=== PATIENT | male | born 1935 | race African-American/Black ===

== ENCOUNTER 2024-06-24 20:53 | Emergency (ER) | payer OTHER, MEDICAID ==
[~2024-06-24] VITALS: Ht 167.6 cm; Wt 104.0 kg
[2024-06-24] MEDS: ASPIRIN 325MG EC TABLET PO NR (00:20)
[2024-06-24 20:56] VITALS: TEMP 97.9; O2SAT 99
[2024-06-24 21:36] LABS: BASOPHILS % 0.5 % (0.0-2.0); EOSINOPHILS % 1.1 % (0.0-5.0); HEMATOCRIT. 36.6 % (42.0-52.0); HEMOGLOBIN. 12.1 g/dL (14.0-18.0); LYMPHOCYTES % 12.5 % (20.0-50.0); MEAN CORPUSCULAR HEMOGLOBIN 29.3 pg (28.0-32.0); MEAN CORPUSCULAR HGB CONC 33.1 g/dL (31.0-37.0); MEAN CORPUSCULAR VOLUME 88.4 fL (80.0-94.0); MEAN PLATELET VOLUME 8.6 fl (7.4-10.4); MONOCYTES % 5.4 % (2.0-8.0); NEUTROPHILS % 80.5 % (40.0-76.0); PLATELET 200 x1000/uL (130-400); RED BLOOD CELL COUNT 4.14 mill/uL (4.7-6.1); RED CELL DISTRIBUTION WIDTH 15.2 % (11.6-14.6); WHITE BLOOD COUNT 8.3 x1000/uL (4.5-11.0)
[2024-06-24 21:44] LABS: CHLORIDE 101 mEq/L (98-107); POTASSIUM 4.9 mEq/L (3.5-5.1); SODIUM 137 mEq/L (136-145)
[2024-06-24 21:45] LABS: CARBON DIOXIDE 27 mEq/L (21-32)
[2024-06-24 21:46] LABS: CALCIUM 9.4 mg/dL (8.7-10.4)
[2024-06-24 21:50] LABS: CREATININE 1.7 mg/dL (0.6-1.3); GLUCOSE 248 mg/dL (70-105)
[2024-06-24 21:51] LABS: UREA NITROGEN BLOOD 33 mg/dL (9-23)
[2024-06-24 21:52] LABS: ALANINE AMINOTRANSFERASE 28 IU/L (10-49); ALBUMIN 4.1 g/dL (3.2-4.8); ASPARTATE AMINOTRANSFERASE 25 IU/L (<34)
[2024-06-24 21:53] LABS: BILIRUBIN TOTAL 0.3 mg/dL (0.1-1.0); PROTEIN TOTAL 6.7 g/dL (6.0-8.3)
[2024-06-24 21:58] LABS: BILIRUBIN DIRECT < 0.1 mg/dL (<=3.0)
[2024-06-24 22:00] LABS: TROPONIN I HIGH SENSITIVITY 110 ng/L (3.0-53)
[2024-06-24 22:21] LABS: PROTHROMBIN TIME 10.9 sec (9.6-11.0)
[2024-06-24 23:01] LABS: CLARITY URINE CLEAR (CLEAR); COLOR URINE YELLOW (YELLOW); GLUCOSE URINE 3+ (NEGATIVE); KETONES URINE NEGATIVE (NEGATIVE); LEUKOCYTE ESTERASE URINE NEGATIVE (NEGATIVE); NITRITE URINE NEGATIVE (NEGATIVE); OCCULT BLOOD URINE NEGATIVE (NEGATIVE); PROTEIN URINE NEGATIVE (NEGATIVE); SPECIFIC GRAVITY URINE 1.023 (1.005-1.030); UROBILINOGEN URINE 0.2 E.U./dL (0.2-1.0)
[2024-06-24 23:18] LABS: BACTERIA URINE NONE SEEN; RBC URINE NONE SEEN /hpf (0-2); SQUAMOUS EPITHELIAL CELL URINE RARE /lpf (RARE/1+); WBC URINE NONE SEEN /hpf (0-2)
[2024-06-25 01:23] LABS: TROPONIN I HIGH SENSITIVITY 100 ng/L (3.0-53)
[2024-06-25] MEDS: ENOXAPARIN 100MG/ML SYR SUBCUT NR (01:50)
[2024-06-25 06:13] VITALS: BP 190/75; PULSE 82; RESP 14; O2SAT 95
== END 2024-06-25 06:40 | disposition short-term general hospital (02) ==
LOC: ER 20:53 → EDBEDREQDT 06-25 03:42 → EDBEDREQ 06-25 03:42 → EDBEDREQTM 06-25 03:42 → ER 06-25 06:40
DX: I21.4 Non-ST elevation (NSTEMI) myocardial infarction (principal); R55 Syncope and collapse; R62.7 Adult failure to thrive; E11.9 Type 2 diabetes mellitus without complications; E78.00 Pure hypercholesterolemia, unspecified; F03.90 Unspecified dementia, unspecified severity, without behavioral disturbance, psychotic disturbance, mood disturbance, and anxiety; I10 Essential (primary) hypertension
CPT/HCPCS: 99285; 70450; 71045; 80076; 80048; 81003; 82962; 83690; 85025; 85610; 84484 ×2; 36415 ×2; 93005; 83880; 96372; J1650